=== PATIENT | female | born 1960 | race African-American/Black ===

== ENCOUNTER 2021-04-21 16:38 | Emergency (ER) | payer OTHER ==
[2021-04-21 16:46] VITALS: BP 147/73
[2021-04-21 17:17] LABS: BASOPHILS % (AUTO) 0.5 %; EOSINOPHILS # (AUTO) 0.2 10^3/uL (0.0-0.7); EOSINOPHILS % (AUTO) 3.1 %; HCT - HEMATOCRIT 40.6 % (37.0-47.0); HGB - HEMOGLOBIN 13.9 g/dL (12.0-16.0); LYMPHOCYTES # (AUTO) 2.2 10^3/uL (1.5-3.5); LYMPHOCYTES % (AUTO) 30.6 %; MEAN CORPUSCULAR HEMOGLOBIN 30.7 pg (27.0-31.0); MEAN CORPUSCULAR HGB CONC 34.2 g/dL (32.0-36.0); MEAN CORPUSCULAR VOLUME 89.6 fL (81.0-99.0); MEAN PLATELET VOLUME 10.2 fL (7.9-10.8); MONOCYTES # (AUTO) 0.5 10^3/uL (0.0-1.0); MONOCYTES % (AUTO) 6.6 %; NEUTROPHILS # (AUTO) 4.3 10^3/uL (1.5-6.6); NEUTROPHILS % (AUTO) 58.9 %; PLT - PLATELET COUNT 184 10^3/uL (130-450); RED BLOOD COUNT 4.53 10^6/uL (4.20-5.40); RED CELL DISTRIBUTION WIDTH 12.2 % (12.0-15.0); WHITE BLOOD COUNT 7.3 x10^3/uL (4.8-10.8)
[2021-04-21 17:31] LABS: ALBUMIN 4.3 g/dL (3.2-5.5); ALBUMIN/GLOBULIN RATIO 1.3 (1.0-2.2); BILIRUBIN,TOTAL 0.8 mg/dL (0.2-1.0); CALCIUM 9.2 mg/dL (8.5-10.3); CREATININE 0.8 mg/dL (0.4-1.0); POTASSIUM 3.8 mmol/L (3.5-5.0); TOTAL PROTEIN 7.5 g/dL (6.7-8.2)
--- NOTE | 2021-04-21 17:46 | ED Physician Documentation ---
History of Present Illness - Stated complaint Stated Complaint: TINGLING FROM WAIST DOWN - Chief complaint Chief Complaint: Neuro - Additonal information Additional information: 57-year-old female presents the emergency department for evaluation of numbness and tingling in both of her legs. She reports a history of intermittent numbness and tingling that had initially been sporadic but began to occur with increasing frequency. She was ultimately seen by her primary care provider as well as a neurologist in [place] from where she recently moved and was found to have pinched nerves in the lower lumbar area. She has undergone multiple procedures that have included MRI as well as injection of steroids into the epidural space. She last received a spinal injection 03/22/2021 before moving to [facility]. She reports that over the last 2 weeks she has had increasing numbness not only neck of her baseline left leg but now also of her right. She has no saddle anesthesia. She denies that she has low back pain at this time. She had no loss of bowel or bladder function. no fevers. no hx of cancer. denies DM She takes tramadol and as needed gabapentin which she often finds helpful for the pain but has been running out of the gabapentin. She also takes hydroxyzine trazodone and Zoloft for history of anxiety and depression/insomnia. Review of Systems Constitutional: reports: Reviewed and negative Nose: reports: Reviewed and negative Throat: reports: Reviewed and negative Cardiac: reports: Reviewed and negative Respiratory: reports: Reviewed and negative GI: reports: Reviewed and negative : reports: Reviewed and negative Skin: reports: Reviewed and negative Musculoskeletal: reports: Reviewed and negative Neurologic: reports: Numbness. denies: Generalized weakness, Syncope, Seizure, Altered mental status, Unresponsive, Headache, LOC PD PAST MEDICAL HISTORY - Present Medications Home Medications: Ambulatory Orders Medication Instructions Recorded Confirmed Gabapentin [Neurontin] 200 mg PO TID #84 cap 04/21/21 - Allergies Allergies/Adverse Reactions: Allergies Allergy/AdvReac Type Severity Reaction Status Date / Time No Known Drug Allergies Allergy Verified 04/21/21 16:42 - Social History Does the pt smoke?: No Smoking Status: Never smoker PD ED PE EXPANDED - General General: Alert, No acute distress, Well developed/nourished - Cardiac Cardiac: Regular Rate, Radial strong equal, Pedal strong equal, Cap refill < 2 sec - Respiratory Respiratory: Clear to ausultation nani. No: Distress, Labored - Abdomen Abdomen: Normal Bowel sounds. No: Tender to palpation - Back Back: Normal exam, Normal ROM (Bilateral paresthesias left greater than right. Difficulty differentiating sharp from dull touch on left lateral side predominantly.), Other (Full range of motion lower lumbar spine. No paraspinous tenderness elicited. No midline spinous tenderness elicited. Normal gait. Motor strength 5 of 5 bilateral lower extremities. 4+ patellar reflex on left leg 2+ right leg. Patient is able to walk on her heels and soles of feet.). No: Vertebral tenderness, Soft tissue tenderness - Derm Derm: Normal color, Warm and dry. No: Rash - Neuro Neuro: Alert and Oriented X 3, CNII-XII intact - GCS Eye Opening: Spontaneous Motor: Obeys Commands Verbal: Oriented Total: 15 Results - Vitals Vitals: Vital Signs - 24 hr 04/21/21 16:43 Temperature 36.9 C Heart Rate 85 Respiratory 18 Rate Blood Pressure 147/73 H O2 Saturation 99 Oxygen O2 Source Room air - Labs Labs: Laboratory Tests 04/21/21 04/21/21 17:14 17:14 WBC 7.3 RBC 4.53 Hgb 13.9 Hct 40.6 MCV 89.6 MCH 30.7 MCHC 34.2 RDW 12.2 Plt Count 184 MPV 10.2 Neut # (Auto) 4.3 Lymph # (Auto) 2.2 Aiken # (Auto) 0.5 Eos # (Auto) 0.2 Baso # (Auto) 0.0 Absolute Nucleated RBC 0.00 Nucleated RBC % 0.0 Sodium 136 Potassium 3.8 Chloride 102 Carbon Dioxide 23 Anion Gap 11.0 BUN 9 Creatinine 0.8 Estimated GFR (MDRD) 74 L Glucose 122 H Calcium 9.2 Total Bilirubin 0.8 AST 31 ALT 34 Alkaline Phosphatase 61 Total Protein 7.5 Albumin 4.3 Globulin 3.2 Albumin/Globulin Ratio 1.3 Lipase 28 PD MEDICAL DECISION MAKING - ED course Complexity details: reviewed results, re-evaluated patient, d/w patient ED course: 57-year-old female who recently moved to [facility] presents the emergency department for increasing paresthesias without motor weakness in her bilateral lower extremities. In her reported history it does sound like she has a history of lumbar disc disease and has previously been treated with spinal injections. She has no red flags on exam and other than the paresthesias left greater than right the exam was rather reassuring. We did complete screening labs today that showed no acute worrisome abnormalities. I suspect that she has a bilateral neuropathy likely related to lumbar radiculopathy. Given that she has had improvement in her symptoms with use of gabapentin in the past I will start her on a scheduled dose of gabapentin and have encouraged her to establish care with a primary care provider here. I have also encouraged her to request a return of her records from her neurologist as well as her imaging. Emergent return precautions were discussed for worsening symptoms. Departure - Departure Disposition: Home, Self Care Clinical Impression: Neuropathy involving both lower extremities Condition: Stable Record reviewed to determine appropriate education?: Yes Instructions: Neuropathy Peripheral Follow-Up: [facility] [Provider Group] Prescriptions: Gabapentin [Neurontin] 200 mg PO TID #84 cap Comments: Rosario your screening labs today do not show any worrisome abnormalities. As we discussed at the bedside you do have what is called neuropathy. This is inflammation on the nerves of your lower legs. It can be common in people that have a history of low back pain or disc disease. Please fill the prescription for the EYAD gabapentin and take 3 times a day as directed. I have given you a 2-week supply of medication. It is important that you establish care with a primary care provider to discuss this ER visit. I also recommend that you call your old provider and request transfer of your records as well is any imaging that was completed. 15 point you find that your symptoms are worsening, you develop fevers, lose control of your bowel or bladder function then please return immediately to the ER for a second evaluation.
== END 2021-04-21 18:43 | disposition home or self-care (01) ==
LOC: ED 16:38
DX: G62.9 Polyneuropathy, unspecified (principal)
CPT/HCPCS: 36415; 80053; 83690; 85025; 99283; 99284